=== PATIENT | female | born 1965 | race Caucasian/White ===

== ENCOUNTER 2018-08-06 12:45 | Emergency (ER) | payer MEDICARE, OTHER ==
[~2018-08-06] VITALS: Ht 157.5 cm; Wt 97.5 kg
--- NOTE | 2018-08-06 12:58 | Emergency Room Report ---
History of Present Illness General Chief Complaint: Chest Pain Source: Patient Present Illness HPI Patient presents with complaints of chest pain midsternal reports that she was just released from the hospital at [place] yesterday With similar complaint patient reports having upper endoscopy Reports that she came out of the anesthesia to early and felt that she coughed and possibly aspirated Patient was at her GI physicians office today when she complained of the chest pain and brought to the emergency room Denies any back or flank pain denies any vomiting Patient has significant past medical history with feeding tube in place previous bowel obstruction patient has a Port-A-Cath in the right upper chest Allergies: Coded Allergies: ADHESIVE TAPE (Verified Allergy, Unknown, 08/06/18) ALBUTEROL (Verified Allergy, Unknown, 08/06/18) ASPARTAME (Verified Allergy, Unknown, 08/06/18) BACITRACIN (Verified Allergy, Unknown, 08/06/18) CHLORHEXIDINE (Verified Allergy, Unknown, 08/06/18) DIPHENHYDRAMINE (Verified Allergy, Unknown, 08/06/18) DROPERIDOL (Verified Allergy, Unknown, 08/06/18) ERGOTAMINE (Verified Allergy, Unknown, 08/06/18) HYDROCODONE (Verified Allergy, Unknown, 08/06/18) IPRATROPIUM (Verified Allergy, Unknown, 08/06/18) LATEX (Verified Allergy, Unknown, 08/06/18) LEVALBUTEROL (Verified Allergy, Unknown, 08/06/18) MUPIROCIN (Verified Allergy, Unknown, 08/06/18) NALOXONE (Verified Allergy, Unknown, 08/06/18) NAPHAZOLINE (Verified Allergy, Unknown, 08/06/18) NEOMYCIN (Verified Allergy, Unknown, 08/06/18) PROCHLORPERAZINE (Verified Allergy, Unknown, 08/06/18) SULFAMETHOXAZOLE (Verified Allergy, Unknown, 08/06/18) THIMEROSAL (Verified Allergy, Unknown, 08/06/18) TRAMADOL (Verified Allergy, Unknown, 08/06/18) VITAMIN K2 (Verified Allergy, Unknown, 08/06/18) Patient History Past Medical History: see triage record Pertinent Family History: none Last Menstrual Period: na Reviewed Nursing Documentation: PMH: Agreed; PSxH: Agreed Review of Systems All Other Systems: negative except mentioned in HPI Physical Exam Vital Signs Date Time Temp Pulse Resp B/P (MAP) Pulse Ox O2 Delivery O2 Flow Rate FiO2 08/06/18 12:38 98.2 86 14 117/82 95 Room Air Sp02 EP Interpretation: reviewed, normal General Appearance: no apparent distress Head: normocephalic, atraumatic Eyes: bilateral eye PERRL, bilateral eye EOMI ENT: dry mucus membranes Neck: supple Respiratory: lungs clear, no retraction, no accessory muscle use Cardiovascular #1: regular rate, rhythm Gastrointestinal: other - Feeding tube in place, significant mid abdominal surgical scars Musculoskeletal: swelling - Significant noted in both lower extremities Neurologic: alert, oriented x3, responsive Skin: other - Multiple mid abdominal surgical scars, edema on both lower extremities Lymphatic: no adenopathy Medical Decision Making Diagnostic Impression: Primary Impression: Chest pain ER Course Patient is a fairly complex patient with multiple differential to consideration including but not limited to cardiac cardiopulmonary and vascular emergencies Patient's blood work is obtained imaging studies obtained as well Patient continues to rest well in no acute distress Lung sounds and saturations are appropriate case was discussed with the patient' s primary physician And it was felt the patient stable for close outpatient follow-up Labs Test 08/06/18 13:00 White Blood Count 7.7 K/UL (4.8-10.8) Red Blood Count 3.12 M/UL (4.20-5.40) Hemoglobin 9.7 G/DL (12.0-16.0) Hematocrit 30.4 % (37.0-47.0) Mean Corpuscular Volume 97 FL (80-99) Mean Corpuscular Hemoglobin 30.9 PG (27.0-31.0) Mean Corpuscular Hemoglobin Concent 31.8 G/DL (32.0-36.0) Red Cell Distribution Width 14.7 % (11.6-14.8) Platelet Count 243 K/UL (150-450) Mean Platelet Volume 6.3 FL (6.5-10.1) Neutrophils (%) (Auto) 80.7 % (45.0-75.0) Lymphocytes (%) (Auto) 11.1 % (20.0-45.0) Monocytes (%) (Auto) 6.8 % (1.0-10.0) Eosinophils (%) (Auto) 0.7 % (0.0-3.0) Basophils (%) (Auto) 0.7 % (0.0-2.0) Sodium Level 142 MMOL/L (136-145) Potassium Level 3.7 MMOL/L (3.5-5.1) Chloride Level 103 MMOL/L (98-107) Carbon Dioxide Level 31 MMOL/L (21-32) Anion Gap 8 mmol/L (5-15) Blood Urea Nitrogen 11 mg/dL (7-18) Creatinine 0.8 MG/DL (0.55-1.30) Estimat Glomerular Filtration Rate > 60 mL/min (>60) Glucose Level 113 MG/DL (74-106) Calcium Level 9.7 MG/DL (8.5-10.1) Total Bilirubin 0.3 MG/DL (0.2-1.0) Aspartate Amino Transf (AST/SGOT) 12 U/L (15-37) Alanine Aminotransferase (ALT/SGPT) 21 U/L (12-78) Alkaline Phosphatase 145 U/L (46-116) Total Creatine Kinase 27 U/L (26-308) Creatine Kinase MB < 0.5 NG/ML (0.0-3.6) Creatine Kinase MB Relative Index Troponin I 0.001 ng/mL (0.000-0.056) Pro-B-Type Natriuretic Peptide 178 pg/mL (0-125) Total Protein 6.9 G/DL (6.4-8.2) Albumin 2.7 G/DL (3.4-5.0) Globulin 4.2 g/dL Albumin/Globulin Ratio 0.6 (1.0-2.7) Rhythm Strip Diag. Results EP Interpretation: yes Rate: 80 Rhythm: NSR, no PVC's, no ectopy Chest X-Ray Diagnostic Results Chest X-Ray Diagnostic Results : Chest X-Ray Ordered: Yes # of Views/Limited/Complete: 1 View Indication: Chest Pain EP Interpretation: Yes Interpretation: no consolidation, no effusion, no pneumothorax Impression: No acute disease Electronically Signed by: Olimpia Marin DO Last Vital Signs Date Time Temp Pulse Resp B/P (MAP) Pulse Ox O2 Delivery O2 Flow Rate FiO2 08/06/18 12:38 98.2 86 14 117/82 95 Room Air Status: improved Disposition: HOME, SELF-CARE Condition: Improved Additional Instructions: Patient is provided with the discharge instructions notified to follow up with primary doctor in the next 2-3 days otherwise return to the er with any worsening symptoms. Please note that this report is being documented using DRAGON technology. This can lead to erroneous entry secondary to incorrect interpretation by the dictating instrument. Olimpia Marin DO Aug 06, 2018 12:58
[2018-08-06 13:06] VITALS: BP 135/68
[2018-08-06 13:21] LABS: BASOPHILS % (AUTO) 0.7 % (0.0-2.0); EOSINOPHILS % (AUTO) 0.7 % (0.0-3.0); HEMATOCRIT 30.4 % (37.0-47.0); HEMOGLOBIN 9.7 G/DL (12.0-16.0); LYMPHOCYTES % (AUTO) 11.1 % (20.0-45.0); MEAN CORPUSCULAR VOLUME 97 FL (80-99); MONOCYTES % (AUTO) 6.8 % (1.0-10.0); NEUTROPHILS % (AUTO) 80.7 % (45.0-75.0); PLATELET COUNT 243 K/UL (150-450); RED BLOOD COUNT 3.12 M/UL (4.20-5.40); RED CELL DISTRIBUTION WIDTH 14.7 % (11.6-14.8); WHITE BLOOD COUNT 7.7 K/UL (4.8-10.8)
[2018-08-06 13:27] LABS: ANION GAP 8 mmol/L (5-15); BLOOD UREA NITROGEN 11 mg/dL (7-18); CALCIUM 9.7 MG/DL (8.5-10.1); CARBON DIOXIDE 31 MMOL/L (21-32); CHLORIDE 103 MMOL/L (98-107); CREATININE 0.8 MG/DL (0.55-1.30); POTASSIUM 3.7 MMOL/L (3.5-5.1); SODIUM 142 MMOL/L (136-145)
[2018-08-06 13:40] LABS: ALANINE AMINOTRANSFERASE 21 U/L (12-78); ALBUMIN 2.7 G/DL (3.4-5.0); ALBUMIN/GLOBULIN RATIO 0.6 (1.0-2.7); ALKALINE PHOSPHATASE 145 U/L (46-116); ASPARTATE AMINO TRANSFERASE 12 U/L (15-37); BILIRUBIN,TOTAL 0.3 MG/DL (0.2-1.0); CKMB < 0.5 NG/ML (0.0-3.6); CREATINE KINASE 27 U/L (26-308)
--- NOTE | 2018-08-06 15:05 | Diagnostic Imaging Report ---
Indication: Shortness of breath, chest pain Technique: One view of the chest Comparison: none Findings: The heart is upper limits normal in size. There is a right chest port catheter. The lungs and pleural spaces are clear. Impression: No acute process
[2018-08-06 15:24] VITALS: BP 125/63
--- NOTE | 2018-08-07 15:21 | Cardiology Report ---
APPROVED REPORT EKG Measurement Heart [id number] Normal sinus rhythm Normal ECG
== END 2018-08-06 15:25 | disposition home or self-care (01) ==
LOC: EDBD 12:45 → EMR 13:19
DX: R07.89 Other chest pain (principal); Z88.2 Allergy status to sulfonamides; Z88.8 Allergy status to other drugs, medicaments and biological substances; Z88.1 Allergy status to other antibiotic agents; Z91.040 Latex allergy status
CPT/HCPCS: 36415; 71045; 80053; 82550; 82553; 83880; 84484; 85025; 93005; 99283

== ENCOUNTER 2020-03-13 21:36 | Inpatient (IN) | payer MEDICARE, OTHER ==
[~2020-03-13] VITALS: Ht 177.8 cm; Wt 100.7 kg
[2020-03-13 21:36] VITALS: BP 124/87
--- NOTE | 2020-03-13 21:36 | NUR ---
ED Nurse Note: Pt JESUS [id number] from [facility] c/o seizure, witnessed by nursing staff, unk duration. Per EMS, no incontinence, no head trauma. Pt AAOx3, able to follow simple commands. No SOB, on room air. Unk last seizure episode. Seizure precaution observed. Pt placed on cardiac cath technologist. ERMD at bedside.
[2020-03-13] MEDS ORDERED: levETIRAcetam 1,000mg/NS100ml 100 ML IVPB ONE (21:45)
[2020-03-13] MEDS ORDERED: LORazepam Inj 2mg/ml 1ml IV ONE ×2 (21:45→23:00)
--- NOTE | 2020-03-13 21:45 | NUR ---
ED Nurse Note: Pt is actively seizing lasted for 30 sec. Ativan 2mg IM given, as ordered. Pt has no IV access yet.
[2020-03-13] MEDS ORDERED: LORazepam Inj 2mg/ml 1ml ONE (22:35)
--- NOTE | 2020-03-13 22:35 | NUR ---
ED Nurse Note: IV line established. Blood collected and sent to lab.
--- NOTE | 2020-03-13 22:55 | NUR ---
ED Nurse Note: Pt taken to CT via bibi, accompanied by a tech.
--- NOTE | 2020-03-13 23:05 | NUR ---
ED Nurse Note: Pt returned from CT, not in any distress.
[2020-03-13 23:10] LABS: BASOPHILS % (AUTO) 1.5 % (0.0-2.0); EOSINOPHILS % (AUTO) 2.6 % (0.0-3.0); HEMATOCRIT 36.7 % (37.0-47.0); HEMOGLOBIN 11.7 G/DL (12.0-16.0); LYMPHOCYTES % (AUTO) 26.5 % (20.0-45.0); MEAN CORPUSCULAR VOLUME 104 FL (80-99); MONOCYTES % (AUTO) 14.1 % (1.0-10.0); NEUTROPHILS % (AUTO) 55.4 % (45.0-75.0); PLATELET COUNT 260 K/UL (150-450); RED BLOOD COUNT 3.52 M/UL (4.20-5.40); RED CELL DISTRIBUTION WIDTH 15.1 % (11.6-14.8); WHITE BLOOD COUNT 5.6 K/UL (4.8-10.8)
[2020-03-13 23:18] LABS: ALANINE AMINOTRANSFERASE 15 U/L (12-78); ALBUMIN 2.8 G/DL (3.4-5.0); ALBUMIN/GLOBULIN RATIO 0.9 (1.0-2.7); ALKALINE PHOSPHATASE 178 U/L (46-116); ASPARTATE AMINO TRANSFERASE 20 U/L (15-37); BILIRUBIN,TOTAL 0.2 MG/DL (0.2-1.0); BLOOD UREA NITROGEN 13 mg/dL (7-18); CALCIUM 8.7 MG/DL (8.5-10.1); CHLORIDE 104 MMOL/L (98-107); CREATINE KINASE 27 U/L (26-308); CREATININE 0.8 MG/DL (0.55-1.30); POTASSIUM 3.2 MMOL/L (3.5-5.1); SODIUM 139 MMOL/L (136-145)
[2020-03-13 23:23] VITALS: BP 137/63
--- NOTE | 2020-03-13 23:30 | NUR ---
HAND-OFF: Report given to Jocelyn PENN.
[2020-03-13 23:31] LABS: CARBON DIOXIDE 27 MMOL/L (21-32)
--- NOTE | 2020-03-13 23:31 | NUR ---
ED Nurse Note: Pt resting in bed, VSS no ss of distress noted. will continue to monitor.
--- NOTE | 2020-03-13 23:59 | Emergency Room Report ---
History of Present Illness General Chief Complaint: Seizure Present Illness HPI 54-year-old female with a complex past medical history and history of seizure disorder but not currently on any antiepileptics here with witnessed 1 minute tonic-clonic seizure-like activity at the care home. This lasted for approximately 60 seconds according to the care home report and self resolved without any medication. Patient appeared postictal on arrival to the emergency department. She was moaning and was not able to provide any clear history. Patient had another seizure on arrival to the emergency department requiring 2 mg of Ativan IV with resolution of her seizure. She however had another seizure and required another 2 mg of Ativan IV again with resolution. Unable to participate in review of systems secondary to postictal state Allergies: Coded Allergies: ADHESIVE TAPE (Verified Allergy, Unknown, 08/06/18) ALBUTEROL (Verified Allergy, Unknown, 08/06/18) ASPARTAME (Verified Allergy, Unknown, 08/06/18) BACITRACIN (Verified Allergy, Unknown, 08/06/18) CHLORHEXIDINE (Verified Allergy, Unknown, 08/06/18) DIPHENHYDRAMINE (Verified Allergy, Unknown, 08/06/18) DROPERIDOL (Verified Allergy, Unknown, 08/06/18) ERGOTAMINE (Verified Allergy, Unknown, 08/06/18) HYDROCODONE (Verified Allergy, Unknown, 08/06/18) IPRATROPIUM (Verified Allergy, Unknown, 08/06/18) LATEX (Verified Allergy, Unknown, 08/06/18) LEVALBUTEROL (Verified Allergy, Unknown, 08/06/18) MUPIROCIN (Verified Allergy, Unknown, 08/06/18) NALOXONE (Verified Allergy, Unknown, 08/06/18) NAPHAZOLINE (Verified Allergy, Unknown, 08/06/18) NEOMYCIN (Verified Allergy, Unknown, 08/06/18) PROCHLORPERAZINE (Verified Allergy, Unknown, 08/06/18) SULFAMETHOXAZOLE (Verified Allergy, Unknown, 08/06/18) THIMEROSAL (Verified Allergy, Unknown, 08/06/18) TRAMADOL (Verified Allergy, Unknown, 08/06/18) VITAMIN K2 (Verified Allergy, Unknown, 08/06/18) COVID-19 Screening Contact w/high risk pt: No Experienced COVID-19 symptoms?: No COVID-19 Testing performed RESOURCE CONSERVATIONIST: No Nursing Documentation-PMH Hx Hypertension: Yes Review of Systems All Other Systems: limited - Altered, somnolent Physical Exam Vital Signs Date Time Temp Pulse Resp B/P (MAP) Pulse Ox O2 Delivery O2 Flow Rate FiO2 03/13/20 21:33 98.4 72 18 124/87 (99) 98 Room Air Sp02 EP Interpretation: reviewed, normal General Appearance: no apparent distress, non-toxic, other - Morbidly obese Head: normocephalic, atraumatic Eyes: bilateral eye normal inspection, bilateral eye PERRL ENT: normal pharynx, no angioedema, other - Incoherently moaning, airway intact Neck: full range of motion, supple/symm/no masses Respiratory: chest non-tender, lungs clear, normal breath sounds, speaking full sentences Cardiovascular #1: regular rate, rhythm, no edema Cardiovascular #2: 2+ carotid (R), 2+ carotid (L), 2+ radial (R), 2+ radial (L), 2+ dorsalis pedis (R), 2+ dorsalis pedis (L) Gastrointestinal: normal bowel sounds, non tender, soft, non-distended, no guarding, no rebound Rectal: deferred Genitourinary: normal inspection, no CVA tenderness Musculoskeletal: back normal, normal range of motion, gait/station normal, non- tender Neurologic: motor strength/tone normal, responsive, other - Confused, moaning incoherently. Unable to follow commands secondary to somnolence and postictal state. Moving all extremities non-purposefully. Nonfocal neurologic examination Psychiatric: other - Confused, somnolent Lymphatic: no adenopathy Medical Decision Making Diagnostic Impression: Primary Impression: Epileptic seizure, generalized Additional Impressions: AMS (altered mental status) Hypokalemia ER Course Laboratory Tests Test 03/13/20 22:35 White Blood Count 5.6 K/UL (4.8-10.8) Red Blood Count 3.52 M/UL (4.20-5.40) L Hemoglobin 11.7 G/DL (12.0-16.0) L Hematocrit 36.7 % (37.0-47.0) L Mean Corpuscular Volume 104 FL (80-99) H Mean Corpuscular Hemoglobin 33.3 PG (27.0-31.0) H Mean Corpuscular Hemoglobin Concent 32.0 G/DL (32.0-36.0) Red Cell Distribution Width 15.1 % (11.6-14.8) H Platelet Count 260 K/UL (150-450) Mean Platelet Volume 6.8 FL (6.5-10.1) Neutrophils (%) (Auto) 55.4 % (45.0-75.0) Lymphocytes (%) (Auto) 26.5 % (20.0-45.0) Monocytes (%) (Auto) 14.1 % (1.0-10.0) H Eosinophils (%) (Auto) 2.6 % (0.0-3.0) Basophils (%) (Auto) 1.5 % (0.0-2.0) Sodium Level 139 MMOL/L (136-145) Potassium Level 3.2 MMOL/L (3.5-5.1) L Chloride Level 104 MMOL/L (98-107) Carbon Dioxide Level 27 MMOL/L (21-32) Blood Urea Nitrogen 13 mg/dL (7-18) Creatinine 0.8 MG/DL (0.55-1.30) Estimated Glomerular Filtration Rate > 60 mL/min (>60) Glucose Level 130 MG/DL (74-106) H Calcium Level 8.7 MG/DL (8.5-10.1) Total Bilirubin 0.2 MG/DL (0.2-1.0) Aspartate Amino Transferase (AST) 20 U/L (15-37) Alanine Aminotransferase (ALT) 15 U/L (12-78) Alkaline Phosphatase 178 U/L (46-116) H Total Creatine Kinase 27 U/L (26-308) Troponin I 0.000 ng/mL (0.000-0.056) Total Protein 5.8 G/DL (6.4-8.2) L Albumin 2.8 G/DL (3.4-5.0) L Globulin 3.0 g/dL Albumin/Globulin Ratio 0.9 (1.0-2.7) L EKG: NSR, no ischemia, intervals WNL. No ectopy. T wave inversions in leads V1 and V2 Rhythm strip: patient monitored for arrhythmias - no malignant dysrhythmias, runs of PVCs, nor pauses noted Total critical care time: Approximately 45 minutes Due to a high probability of clinically significant, life threatening deterioration, the patient required the highest level of preparedness to intervene emergently and I personally spent this critical care time directly and personally managing the patient. This critical care time included obtaining a history, examining the patient, pulse oximetry, ordering and reviewing studies, ordering treatments, evaluating response to treatment and updating management plan as needed, frequent reassessment and discussion with other providers as well as arranging for ultimate disposition. This critical to care time was performed to assess and manage the high probability of life-threatening deterioration that could result in multiorgan failure. This critical care time is separate from the separately billable procedures and treating other patients. Procedure: Ultrasound-guided IV. 20-gauge IV placed in left upper arm using ultrasound guidance. No complications 54-year-old female here with seizure. Review of patient's records show that she does have a seizure disorder in her past medical history however there are no antiepileptic medications listed on her list of medications from the care home. Patient required a total of 4 mg of Ativan IV to stop her tonic-clonic seizure-like activity in the emergency department. She was also given 1 g of Keppra IV. CBC, CMP largely unremarkable. Troponin negative. EKG normal. CT head negative. Chest x-ray normal as well. Patient admitted to telemetry in stable condition. Last Vital Signs Date Time Temp Pulse Resp B/P (MAP) Pulse Ox O2 Delivery O2 Flow Rate FiO2 03/13/20 23:23 90 18 115/57 99 03/13/20 23:23 98.4 Room Air Referrals: Sharon Trejo MD (PCP) Sridhar Feliz M.D. Mar 13, 2020 23:59
[2020-03-14] VITALS (19 sets, daily range): BP systolic 90–126; BP diastolic 41–78
--- NOTE | 2020-03-14 00:10 | NUR ---
ED Nurse Note: VRE/ CRE MRSA swabs obtained and sent to lab. Pt skin intact. Per ERMD, blood catheter placed and UA sent to lab. Pt tolerated well. Will continue to monitor.
[2020-03-14] MEDS ORDERED: BUMETANIDE2 MG ORAL (00:22)
[2020-03-14] MEDS ORDERED: K-TAB10 MEQ PO (00:22)
[2020-03-14] MEDS ORDERED: ASPIRIN81 MG ORAL (00:24)
[2020-03-14] MEDS ORDERED: VITAMIN B122500 MCG PO (00:24)
[2020-03-14] MEDS ORDERED: MELATONIN3 MG ORAL (00:24)
[2020-03-14] MEDS ORDERED: VITAMIN D325 MC1 PO (00:26)
[2020-03-14] MEDS ORDERED: SPIRIVA18 MCG INH (00:32)
[2020-03-14] MEDS ORDERED: ABILIFY30 MG ORAL (00:32)
[2020-03-14] MEDS ORDERED: MAGNESIUM400 M1 PO (00:33)
[2020-03-14] MEDS ORDERED: CELLCEPT500 MG ORAL (00:33)
--- NOTE | 2020-03-14 00:35 | NUR ---
ED Nurse Note: Pt refused IV potassium. ERMD notified. Awaiting further orders.
[2020-03-14] MEDS ORDERED: SENNA8.6 M2 PO (00:37)
[2020-03-14] MEDS ORDERED: ELIQUIS5 MG ORAL ×2 (00:37→00:39)
[2020-03-14] MEDS ORDERED: MIRALAX17 G2 ORAL (00:38)
[2020-03-14] MEDS ORDERED: DOXYCYCLINE MO100 MG ORAL (00:42)
[2020-03-14] MEDS ORDERED: DOCUSATE SODIU250 MG ORAL (00:42)
[2020-03-14] MEDS ORDERED: METOLAZONE5 MG PO (00:43)
[2020-03-14] MEDS ORDERED: SIMETHICONE80 MG ORAL (00:44)
[2020-03-14] MEDS ORDERED: vraylar PO (00:46)
[2020-03-14] MEDS ORDERED: ISOPTO TEARS15 ML OP (00:47)
[2020-03-14] MEDS ORDERED: LIPITOR10 MG ORAL (00:47)
[2020-03-14] MEDS ORDERED: GABAPENTIN600 MG ORAL (00:48)
[2020-03-14] MEDS ORDERED: PANTOPRAZOLE SO40 MG ORAL (00:49)
[2020-03-14] MEDS ORDERED: LIDODERM700 M1 TOPIC (00:49)
[2020-03-14] MEDS ORDERED: ACETAMINOPHEN500 M3 ORAL (00:50)
--- NOTE | 2020-03-14 01:05 | NUR ---
ED Nurse Note: all medications administered, pt tolerated well no ss of distress noted. will continue to monitor.
[2020-03-14 01:14] LABS: APPEARANCE,URINE CLEAR; BILIRUBIN, URINE NEGATIVE (NEGATIVE); COLOR,URINE PALE YELLOW; GLUCOSE, URINE (UA) NEGATIVE (NEGATIVE); KETONES,URINE NEGATIVE (NEGATIVE); LEUKOCYTE ESTERASE ,URINE NEGATIVE (NEGATIVE); NITRITE,URINE NEGATIVE (NEGATIVE); PH,URINE 7 (4.5-8.0); PROTEIN,URINE NEGATIVE (NEGATIVE); UROBILINOGEN,URINE NORMAL MG/DL (0.0-1.0)
--- NOTE | 2020-03-14 01:36 | NUR ---
ED Nurse Note: Report given to FILI Hernández on telemetry unit.
--- NOTE | 2020-03-14 02:00 | NUR ---
ER DISCHARGE NOTE: Patient is cleared to be discharged to telemetry unit per ERMD, pt is aox3, 95% on room air, with stable vital signs. pt was able to verbalize understanding. pt is able to ambulate with steady gait. pt is bedbound with full assist. Report given to FILI Hernández on telemetry unit. Pt transferred to unit no director of cardiac rehabilitation in stable condition with 1 RN and 1 MARSH BUGGY OPERATOR. pt took all belongings.
--- NOTE | 2020-03-14 02:08 | NUR ---
NURSE NOTES: Received pt from ED via aderney. Pt transferred to 201-1 without and incident. Pt is A/Ox4; impulsive and uncooperative. Pt is shouting at nurses and demanding to be discharge. Metter pt to room and unit. Received report from FILI Banks. cafeteria monitor is in placed; pt is NSR. IV site intact, asymptomatic, and patent. Belongings list checked and signed. Bed is in the lowest position and locked. Call light and bedside table is within reach. No signs/symptoms of acute distress noted. Will contact MD for admission orders.
--- NOTE | 2020-03-14 02:52 | NUR ---
NURSE NOTES: Contacted Dr. Trejo's group for admission orders. Awaiting call back.
--- NOTE | 2020-03-14 03:15 | NUR ---
NURSE NOTES: Pt screaming, "I want to get discharged!" Screaming and name calling to every RNs. Pt pulled out both IVs that was inserted in ER and wants her Cristofer Cath to be access instead."
--- NOTE | 2020-03-14 03:30 | NUR ---
NURSE NOTES: Received admission orders from Dr. Gillette. Will note and carry out.
[2020-03-14] MEDS ORDERED: Gadavist 7.5mMol/7.5ml vial IV PRN (03:45)
[2020-03-14] MEDS ORDERED: Miralax 17gm pkt ORAL PRN ×2 (04:15→21:45)
[2020-03-14] MEDS ORDERED: Acetaminophen 500mg (ES) tab ORAL SCH (04:15)
[2020-03-14] MEDS ORDERED: Simethicone 80mg tab ORAL PRN ×2 (04:15→21:45)
[2020-03-14] MEDS ORDERED: Acetaminophen 500mg (ES) tab ORAL PRN (04:45)
[2020-03-14] MEDS ORDERED: HYDROmorphone 2mg tab ORAL PRN (05:30)
--- NOTE | 2020-03-14 05:40 | NUR ---
NURSE NOTES: Per [employer] Pharmacist, safe to give Tylenol PO and Dilaudid PO at the same time.
--- NOTE | 2020-03-14 07:34 | NUR ---
NURSE HAND-OFF REPORT: Important Events on Shift: Pt was admitted for seizures. Pt was uncooperative and impulsive. No seizure activity with admitting RN. Patient Status: Stable Diet: Cardiac Pending Orders: MRI Brain Pending Results/Labs: AM Labs Pending MD notification: N Latest Vital Signs: Temperature 97.3 , Pulse 89 , B/P 126 /65 , Respiratory Rate 20 , O2 SAT 97 , Room Air, O2 Flow Rate . EKG Rhythm: Sinus Rhythm Rhythm change?: N Latest Parks Fall Score: 50 Fall Risk: High Risk Safety Measures: Call light Within Reach, Bed Alarm Zone 2, Side Rails Side Rails x3, Bed position Low and Locked. Fall Precautions: Yellow Socks Yellow Gown Door Sign Patient Fall Education Report given to FILI Hilton.
--- NOTE | 2020-03-14 07:58 | NUR ---
NURSE NOTES: Received report from FILI eHrnández. Pt is A/O x4 but rude and uncooperative. No SOB or acute distress noted. Pt is shouting at nurses to have the kayli cath accessed because she refuses an IV. Informed pt that waiting for the order and will access when obtained. bus monitor is in placed and show SR. Bed is in the lowest position and locked. Side rails padded for seizure precautions. Call light is within reach.
[2020-03-14] MEDS ORDERED: Vitamin D 1000 IU Tab ORAL SCH (09:00)
[2020-03-14] MEDS ORDERED: Eliquis 5mg tablet ORAL SCH (09:00)
[2020-03-14] MEDS ORDERED: Aspirin Baby 81mg ORAL SCH (09:00)
[2020-03-14] MEDS ORDERED: Docusate 250mg cap ORAL SCH (09:00)
[2020-03-14] MEDS ORDERED: Bumetanide 1mg tab ORAL SCH (09:00)
[2020-03-14] MEDS ORDERED: HYDROcodone/Acetamin 7.5/325 tab ORAL PRN ×2 (09:15→21:45)
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
[2020-03-14] MEDS ORDERED: Albuterol/Ipratropium 3ml neb HHN PRN ×2 (10:15→21:45)
[2020-03-14] MEDS: Bumetanide 1mg tab ORAL SCH ×2 (10:28→18:00)
[2020-03-14] MEDS: Doxycycline Monohydrate 100mg ORAL SCH ×2 (10:29→18:00)
[2020-03-14] MEDS: Sennosides 8.6mg tab ORAL SCH ×2 (10:30→17:48)
[2020-03-14] MEDS: LORazepam Inj 2mg/ml 1ml IV PRN ×4 (11:06→13:12)
--- NOTE | 2020-03-14 11:12 | NUR ---
NURSES NOTES: Came to pt room and pt stated she feels she is going to have a seizure. Ativan pulled from pyxs and when arrived back to the room. Pt was already having a seizure. Additional Ativan was pulled and given. TRAPPER ANIMAL called because seizures continued and uncontrolled.
--- NOTE | 2020-03-14 11:17 | NUR ---
NURSE NOTES: pt having continues seizure, 2 doses of ativan administered, PAINTER MIRROR was called and arrived, spoke to dr jung and was notified, ordered transfer to ICU.
--- NOTE | 2020-03-14 11:33 | NUR ---
NURSE NOTES: CATEGORY CONSULTANT NOTES PAGED DR CARRION AGAIN PT STILL HAVING SEIZURE, DR SANCHEZ WAS PAGED.
[2020-03-14] MEDS ORDERED: Midazolam for drip 50 MG in NS 90 ML IV PRN (11:45)
--- NOTE | 2020-03-14 11:49 | General Progress Note ---
Advance Care Planning Advance Care Planning Advance Care Planning [facility] An independent Hospitalist group, where every patient is our [facility] Internal Medicine Hospitalist Advanced Care Planning Note Please contact us at Date of Discussion: A [id number] discussion with the patient regarding the patient's advanced care planning took place during this hospitalization on the above date. The discussion included the explanation and discussion of advance directives and associated forms/documents, as well as the patient's current code status. We also discussed at length the patient's medical conditions (both acute and chroni c), general prognosis, treatment options, and goals of care. The following summarizes the discussion: Advance Care Planning/Goals of Care: - Will attempt to fill out an AD and/or POLST with the patient prior to discharge, if not already completed - Continue current evaluation and management of any acute and chronic medical issues - Will continue to support the patient/family - Will continue to discuss both short- and long-term goals of care DPOA-HC/Surrogate Decision Maker: None currently appointed Code Status: Full Code Advanced Care Planning Forms/Documents Completed: Deferred until later encounter/visit A total of 15 minutes was spent on this discussion, including counseling, answering questions, and completing, if any, pertinent advanced care planning forms/documents. Time of note may not reflect time of encounter. Sander Osuna D.O Mar 14, 2020 11:49
--- NOTE | 2020-03-14 11:55 | NUR ---
NURSES NOTES: Record of Seizure Activity. After INVOICE MACHINE OPERATOR was called and 2 doses of Ativan given with seizures continuing. Vitals are noted in interventions. 11:23 1 min 11:26 50 sec 11:27 20 sec 11:28 1 min 11:28 20 sec 11:29 50 sec 11:33 1 min 20 sec 11:36 45 sec 11:38 40 sec 11:41 1 min 11:46 30 sec 11:47 30 sec 11:49 15 sec 11:51 30 sec 11:54 30 sec 11:55 45 sec
--- NOTE | 2020-03-14 12:00 | NUR ---
NURSE NOTES: Pt received from [facility]. Pt transferred from [facility] d/t intractable sz activity despite multiple Ativan administrations. Pt noted with intermittent sz activity at this time (gentle shaking-like movements noted to extremities) - pupils are equal and round, 4 mm bilaterally with sluggish rxn to light. Pt withdraws to deep pain. No verbal response at this time noted. afebrile. Pt is in SR to cardiac cath lab technologist. No respiratory distress noted. Respirations noted 14/min with spO2 99% on simple mask 15 L O2. Breath sounds slightly diminished upon auscultation. Generalized non-pitting edema noted to extremities. Abd and soft with active bowel sounds to all quadrant. F/C noted draining clear, yellow urine. Skin is intact. Pt has a right upper chest port-a-cath (inserted prioir to admission) with dry and intact dressing - currently saline locked. Preparing to administer keppra IV. Bed in lowest position, alarm on, side rails up x 2 and padded per seizure precaution, call light within reach. Will continue to monitor. Belongings reviewed with FILI Hilton.
[2020-03-14 12:01] LABS: EOSINOPHILS % (AUTO) 1.5 % (0.0-3.0); HEMOGLOBIN 11.2 G/DL (12.0-16.0); LYMPHOCYTES % (AUTO) 24.9 % (20.0-45.0); MEAN CORPUSCULAR VOLUME 98 FL (80-99); MONOCYTES % (AUTO) 11.4 % (1.0-10.0); NEUTROPHILS % (AUTO) 60.3 % (45.0-75.0); PLATELET COUNT 273 K/UL (150-450); RED BLOOD COUNT 3.46 M/UL (4.20-5.40); RED CELL DISTRIBUTION WIDTH 14.2 % (11.6-14.8); WHITE BLOOD COUNT 5.7 K/UL (4.8-10.8)
[2020-03-14 12:20] LABS: ANION GAP 11 mmol/L (5-15); BLOOD UREA NITROGEN 17 mg/dL (7-18); CALCIUM 8.9 MG/DL (8.5-10.1); CARBON DIOXIDE 24 MMOL/L (21-32); CHLORIDE 104 MMOL/L (98-107); CREATININE 0.7 MG/DL (0.55-1.30); POTASSIUM 4.6 MMOL/L (3.5-5.1); SODIUM 139 MMOL/L (136-145)
[2020-03-14 12:25] LABS: ALANINE AMINOTRANSFERASE 22 U/L (12-78); ALBUMIN/GLOBULIN RATIO 0.8 (1.0-2.7); ALKALINE PHOSPHATASE 178 U/L (46-116); ASPARTATE AMINO TRANSFERASE 29 U/L (15-37); BILIRUBIN,TOTAL 0.3 MG/DL (0.2-1.0)
[2020-03-14 12:34] LABS: PHOSPHORUS 3.2 MG/DL (2.5-4.9)
--- NOTE | 2020-03-14 12:52 | NUR ---
NURSE NOTES: Jose OH just brought up from pharmacy - hung at this time. Intermittent SZ activity persists- Each episode lasting approx 5 min. Pt is arousable in between episodes - responds to name. No cardiopulmonary distress noted.
[2020-03-14] MEDS ORDERED: levETIRAcetam 1,000mg/NS100ml 100 ML IVPB ONE (13:00)
--- NOTE | 2020-03-14 13:00 | NUR ---
NURSE NOTES: Dr Rose at bedside assessing pt. Order received to place pt NPO at this time. Gabapentin held - Dr Rose aware (unable to administer PO meds at this time d/t neuro status - pt is drowsy/ not fully alert).
--- NOTE | 2020-03-14 13:30 | NUR ---
NURSE NOTES: Spoke with Dr Osuna over phone - let him know pt is having intermittent SZ activity despite keppra IV administration. States he will place order for dilantin IV.
--- NOTE | 2020-03-14 13:56 | NUR ---
NURSE NOTES: Dilantin IV just brought up from pharmacy and hung at this time.
[2020-03-14] MEDS ORDERED: PHENYTOIN IVPB SCH (14:30)
[2020-03-14] MEDS ORDERED: NS IVPB SCH (14:30)
--- NOTE | 2020-03-14 14:45 | Consultation ---
DATE OF CONSULTATION: 03/14/2020 PULMONARY/ICU CONSULTATION HISTORY OF PRESENT ILLNESS: This is a 54-year-old female with history of seizure disorder, states she has hemiplegic migraine. She was admitted to the hospital following seizures. She was sent from senior living. Past history is notable for Bren-Danlos syndrome, chronic atrial fibrillation, CHF, bipolar disorder, seizure disorder, antiphospholipid syndrome, lupus, gastroparesis, previous pulmonary embolism and DVT. She also has osteoarthritis and asthma. The patient received benzodiazepine and loaded with Keppra. At this time, she is obtunded, seen in the ICU. HOME MEDICATIONS: Reviewed and reconciled in chart. ALLERGIES: Multiple listed in chart. PAST SURGICAL HISTORY: IVC filter in place. PAST MEDICAL HISTORY: As discussed above. SOCIAL HISTORY: No history of alcohol or tobacco usage. She is a senior living resident. PHYSICAL EXAMINATION: GENERAL: Reveals a 54-year-old female. At this time, she is obtunded but responds to deep stimulation. CHEST: Clear breath sounds bilaterally. ABDOMEN: Soft. EXTREMITIES: There is no edema. LABORATORY DATA: Lab testing shows a hemoglobin 11.2, otherwise normal CBC and BMP. Glucose 116. Coags are pending. Toxicology is negative. Urinalysis negative. IMPRESSION: 1. Status epilepticus status post Keppra dosing. 2. Multiple medical problems consisting of Bren-Danlos syndrome, antiphospholipid syndrome, chronic atrial fibrillation, lupus, gastroparesis, previous PE and atrial fibrillation. DISCUSSION: Admit to the hospital. We will initiate Keppra. We will use Versed drip as well as p.r.n. Versed. Currently saturating well on room air. We will follow carefully in ICU. Home medications when the patient is able to take by mouth. We will follow carefully. Ajay Rose M.D. DR: [place] JOB#: [id number] CC:
--- NOTE | 2020-03-14 15:45 | NUR ---
NURSE NOTES: No more SZ activity present since dilantin administration.
--- NOTE | 2020-03-14 15:46 | NUR ---
NURSE NOTES: Toby poultry picker assessing pt at bedside.
--- NOTE | 2020-03-14 16:00 | NUR ---
NURSE NOTES: Pt repositioned. Afebrile. operator technician remains at bedside. No SZ activity noted at this time.
[2020-03-14] MEDS ORDERED: Eliquis 2.5mg tablet ORAL SCH (18:00)
[2020-03-14] MEDS ORDERED: Docusate 100mg cap ORAL SCH (18:00)
--- NOTE | 2020-03-14 18:00 | NUR ---
NURSE NOTES: Spoke with Dr Osuna over phone - let him know all 1800 PO meds held - pt is drwosy - unsafe to swallow at this time. ST eval order placed.
--- NOTE | 2020-03-14 19:36 | NUR ---
NURSE HAND-OFF REPORT: Latest Vital Signs: Temperature 98.2 , Pulse 84 , B/P 95 /55 , Respiratory Rate 22 , O2 SAT 100 , Simple Mask, O2 Flow Rate 15.0 . Vital Sign Comment: stable EKG Rhythm: Sinus Rhythm Rhythm change?: N MD Notified?: n/a MD Response: n/a Latest Parks Fall Score: 50 Fall Risk: High Risk Safety Measures: Call light Within Reach, Bed Alarm Zone 2, Side Rails Side Rails x2, Bed position Low and Locked. Fall Precautions: Yellow Socks Yellow Gown Patient Fall Education Report given to FILI Medina.
--- NOTE | 2020-03-14 19:42 | NUR ---
NURSE NOTES: Received report from FILI Downs. Pt is resting on the bed and drowsy, agitated, confused and combative. On hall monitor with SR. SaO2 100% with O2 15L via simple mask. Pt trying to pulled out Gonzales and kicking and pinching staff. Trying to get out of bed with rolling without assistance. Get order and applied bilateral soft restraint. checked comfort and circulation. Placed fall and seizure precaution. Provide safe environment. Received order with transfer to [facility] with sitter. Pt has Rt. upper chest Port a cath and dressing is clean and dry. Pt has Gonzales cath and patent and drainage well. Will continue to care plan.
[2020-03-14] MEDS ORDERED: levETIRAcetam 1,000mg/NS100ml 100 ML IVPB SCH (21:00)
[2020-03-14] MEDS ORDERED: LORazepam Inj 2mg/ml 1ml IV PRN (21:45)
--- NOTE | 2020-03-14 22:00 | NUR ---
TRANSFER TO FLOOR: Patient transferred to [facility] room 235-2. Report given to FILI Rodriguez. Belongings and medications given to FILI Dill. Pt is awake. No sign of acute distress noted. No seizure activity at this time. Applied Tele monitor. Placed fall and seizure precaution.
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
--- NOTE | 2020-03-14 22:00 | NUR ---
NURSE NOTES: Report received from FILI Medina. Pt transferred by bibi from ICU direct to room 235-2. Pt A/O x2. Unable to determine purpose and place. Observed on Simple Mask 15L saturating at 96% O2 sat. Pt on NPO except for ice chips/meds pending ST eval and hx of seizures. Requested seizure pads for bed rails. Pt c/o pain on left leg 10/10 and continuously requests for Dilaudid and snacks. DOMINICK portcath stable and intact TKO. Gonzales draining well to gravity. Noted with alterations in skin integrity. Pictures uploaded. Bed alarm on. Bed placed in lowest and locked position. Taught pt to utilize call light when needing assistance. Call light within reach. Will continue monitoring.
--- NOTE | 2020-03-14 23:10 | NUR ---
NURSE NOTES: Pt exhibiting disruptive and manipulative behaviors. Attempting to remove venturi mask, cry, and constantly question plan of care. Will reorient. Pt in stable condition.
--- NOTE | 2020-03-14 23:30 | NUR ---
NURSE NOTES: Pt attempting to get out of bed. Pt observed sliding down at edge of bed. When asking what she needs, pt responds with, "I need a snack and pain meds." Pain meds given. Call light within reach and bed in zone 2. Will monitor.
--- NOTE | 2020-03-14 23:34 | NUR ---
NURSE NOTES: Pt observed shaking and attempts to shake her extremities numerous times in bed. Pt then attempts to ask for pain medications. Vitals are WNL.
[2020-03-15] VITALS: BP 106/52
--- NOTE | 2020-03-15 00:10 | NUR ---
NURSE NOTES: PRN ativan given for attempting to get out of bed and pulling on medical devices numerous times. Charge nurse at bedside to re-assess pt and no signs of seizure activity observed. Pt shaking extremities unilaterally. Will monitor.
[2020-03-15] MEDS: LORazepam Inj 2mg/ml 1ml IV PRN ×2 (01:34→14:03)
--- NOTE | 2020-03-15 03:00 | NUR ---
NURSE NOTES: Pt asleep after ativan administration at 0100. No signs of distress noted.
[2020-03-15 04:00] VITALS: BP 94/56
[2020-03-15] MEDS ORDERED: Varibar Honey 250ml MC PRN (04:00)
[2020-03-15] MEDS ORDERED: Varibar Thin Liquid powder 148gm MC PRN (04:00)
[2020-03-15] MEDS ORDERED: Varibar Nectar 240ml MC PRN (04:00)
[2020-03-15] MEDS ORDERED: Varibar Pudding 230ml MC PRN (04:00)
--- NOTE | 2020-03-15 05:12 | NUR ---
NURSE NOTES: Pt awake. Attempting to remove medical devices. Continues to exhibit disruptive behavior utilizing call light more than 10 times during the hour despite all needs met. Pt asks for pain medication and snacks despite medication not due. Switched pt to Nasal Cannula saturating 100% on 3L. No cardiac or respiratory distress noted.
--- NOTE | 2020-03-15 06:19 | Diagnostic Imaging Report ---
EXAM: CT Head Without Intravenous Contrast CLINICAL HISTORY: SZ TECHNIQUE: Axial computed tomography images of the head/brain without intravenous contrast. CTDI is 53.40 mGy and DLP is 965.40 mGy-cm. One or more of the following dose reduction techniques were used: automated exposure control, adjustment of the mA and/or kV according to patient size, use of iterative reconstruction technique. COMPARISON: None FINDINGS: Brain: Unremarkable. No hemorrhage. No significant white matter disease. No edema. Ventricles: Unremarkable. No ventriculomegaly. Bones/joints: Unremarkable. No acute fracture. Soft tissues: Unremarkable. Sinuses: Unremarkable as visualized. No acute sinusitis. Mastoid air cells: Unremarkable as visualized. No mastoid effusion. IMPRESSION: No acute intracranial process.
--- NOTE | 2020-03-15 06:19 | Diagnostic Imaging Report ---
EXAM: XR Chest, 1 View CLINICAL HISTORY: AMS TECHNIQUE: Frontal view of the chest. COMPARISON: 08/06/2018. FINDINGS: Lungs: Probable subsegmental atelectasis in the mid lower lung zones bilaterally. Pleural space: Unremarkable. No pneumothorax. Heart: Cardiomegaly. Mediastinum: Unremarkable. Bones/joints: Osteopenia. Dextroscoliosis of the thoracic spine. Tubes, lines and devices: Right subclavian catheter is noted in place with its tip at the distal superior vena cava. Other findings: Hypoaeration. IMPRESSION: 1. Hypoaeration. 2. Cardiomegaly. 3. Presumed areas of subsegmental atelectasis. 4. Atypical pneumonia cannot be excluded and clinical correlation is advised. 5. Osteopenia.
--- NOTE | 2020-03-15 06:19 | Cardiology Report ---
APPROVED REPORT EXAM: Two-dimensional and M-mode echocardiogram with Doppler and color Doppler. INDICATION SOB M-Mode DIMENSIONS IVSd0.8 (0.7-1.1cm)Left Atrium (MM)4.2 (1.6-4.0cm) LVDd6.0 (3.5-5.6cm)Aortic Root3.0 (2.0-3.7cm) PWd0.9 (0.7-1.1cm)Aortic Cusp Exc.1.6 (1.5-2.0cm) IVSs1.1 cm LVDs4.1 (2.5-4.0cm) PWs1.5 cm <Conclusion> Technically difficult study due to pt verbally disrespectful. Normal left ventricular chamber size, systolic function and wall motion to extent visualized. Left ventricular ejection fraction estimated to be 60-65 %. Anterior Echo-free space, may be due to pericardial fat or effusion. All other cardiac chamber sizes are within normal limits. Calcification of aortic valve with adequate cusp excursion. Thickened mitral valve leaflets with normal excursion. Mitral annulus and aortic root calcification. Pulmonic valve not well visualized. Normal tricuspid valve structure. IVC at normal size with physiologic collapse. A color flow and spectral Doppler study was performed and revealed: Trace mitral regurgitation. Mitral inflow indicates normal left ventricular diastolic function. Mild tricuspid regurgitation. Tricuspid systolic velocities suggests peak right ventricular systolic pressure of 30mmHg.
--- NOTE | 2020-03-15 06:49 | NUR ---
NURSE NOTES: Orders to transfer to Med-Surg in AM. Will endorse. Pt in stable condition. Drowsy but alert, awake, and continues to request for medication.
--- NOTE | 2020-03-15 07:34 | NUR ---
NURSE HAND-OFF REPORT: Important Events on Shift: Transfer to [facility] in AM Patient Status: Stable - Disoriented / Confused Diet: NPO Pending Orders: Y - DIET ORDER Pending Results/Labs: N Pending MD notification: N Latest Vital Signs: Temperature 98.0 , Pulse 78 , B/P 94 /56 , Respiratory Rate 18 , O2 SAT 100 , Venturi Mask, O2 Flow Rate 15.0 . Vital Sign Comment: EKG Rhythm: Sinus Rhythm Rhythm change?: N MD Notified?: - MD Response: Latest Parks Fall Score: 50 Fall Risk: High Risk Safety Measures: Call light Within Reach, Bed Alarm Zone 2, Side Rails Side Rails x2, Bed position Low and Locked. Fall Precautions: Yellow Socks Yellow Gown Door Sign Patient Fall Education Report given to FILI Rivera.
--- NOTE | 2020-03-15 07:45 | NUR ---
NURSE NOTES:Handoff received from FILI Dill. Patient received awake and alert and able to make needs known, patient is oriented to person, time and reason for visit, but unable to identify the hospital. Patient received resting in bed, on 3 liters nasal cannula satting at 98%, seizure precautions being followed with side rails padded, patient is NPO for seizures, plan is to have a swallow/speech evaluation today and possible brain MRI. Patient is placed on fall and aspiration precautions. Bed in the lowest and locked position with call light within reach. Patient provided with a phone to call family. patient has surgical and abdominal site noted. Patient access is R upper arm permacath, no fluids running at this time. Will follow plan of care and monitor patient closely.
[2020-03-15 08:00] VITALS: BP 121/58
--- NOTE | 2020-03-15 08:36 | NUR ---
NURSE NOTES:Called and got order to cancel restraints for patient, as patient received this AM without restraints on patient. Patient does not require restraints at this time. Order received from Dr Osuna.
[2020-03-15] MEDS ORDERED: ARIPiprazole 10mg tab ORAL SCH (09:00)
[2020-03-15] MEDS ORDERED: Doxycycline Monohydrate 100mg ORAL SCH (09:00)
[2020-03-15] MEDS ORDERED: Vitamin D 1000 IU Tab ORAL SCH (09:00)
[2020-03-15] MEDS ORDERED: levETIRAcetam 1,000mg/NS100ml 100 ML IVPB SCH (09:00)
[2020-03-15] MEDS ORDERED: Docusate 250mg cap ORAL SCH (09:00)
[2020-03-15] MEDS ORDERED: Bumetanide 1mg tab ORAL SCH (09:00)
[2020-03-15] MEDS ORDERED: Eliquis 5mg tablet ORAL SCH (09:00)
[2020-03-15] MEDS ORDERED: Sennosides 8.6mg tab ORAL ONE (09:00)
[2020-03-15] MEDS ORDERED: Aspirin Baby 81mg ORAL SCH (09:00)
--- NOTE | 2020-03-15 10:00 | NUR ---
Speech Pathology Note (Bedside Dysphagia Evaluation) Indication of evaluation: S/P seizure with AMS, SLE with gastroparesis to rule out dysphagia to r/o aspiration Brief Note: Ms. Joseph is a 54 year old female who is a resident of [facility] on 03/14/2020 for seizure. Her significant past medical history includes Bren-Danlos Syndrome, SLE, gastroparesis , CHF, A-fib, multiple DVT, PE, s/p IVC filter, Bipolar, and seizure. her previous diet and [facility] is regular diet. Labs, Vital signs imaging and progress notes are all reviewed. Findings and Impression: She was alert and oriented. oral exam is unremarkable except lack of denture. She stated that she eat/chew better without denture. She said she has it. Given her thin liquid and dry solid, she tolerated well without s.s of aspiration or regurgitation. Her mental status and swallow function appeared to be at her baseline. Interpretation: 1. Functional swallow without s.s of aspiration Plan: 1. Regular diet and thin liquid I will sign off from service at this time. Nancy Rodas
[2020-03-15 10:08] LABS: BASOPHILS % (AUTO) 1.6 % (0.0-2.0); EOSINOPHILS % (AUTO) 4.3 % (0.0-3.0); HEMATOCRIT 33.6 % (37.0-47.0); LYMPHOCYTES % (AUTO) 22.8 % (20.0-45.0); MEAN CORPUSCULAR VOLUME 98 FL (80-99); MONOCYTES % (AUTO) 12.4 % (1.0-10.0); PLATELET COUNT 252 K/UL (150-450); RED BLOOD COUNT 3.42 M/UL (4.20-5.40); RED CELL DISTRIBUTION WIDTH 14.4 % (11.6-14.8); WHITE BLOOD COUNT 5.6 K/UL (4.8-10.8)
[2020-03-15 10:15] LABS: ANION GAP 7 mmol/L (5-15); BLOOD UREA NITROGEN 12 mg/dL (7-18); CALCIUM 8.6 MG/DL (8.5-10.1); CARBON DIOXIDE 29 MMOL/L (21-32); CHLORIDE 105 MMOL/L (98-107); CREATININE 0.8 MG/DL (0.55-1.30); PHOSPHORUS 4.5 MG/DL (2.5-4.9); POTASSIUM 3.4 MMOL/L (3.5-5.1); SODIUM 141 MMOL/L (136-145)
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
--- NOTE | 2020-03-15 10:52 | Pulmonology Progress Note ---
Subjective Interval Events: Seen in [place] Constitutional: Reports: no symptoms HEENT: Repors: no symptoms Respiratory: Reports: no symptoms Cardiovascular: Reports: no symptoms Gastrointestinal/Abdominal: Reports: no symptoms Genitourinary: Reports: no symptoms Allergies: Coded Allergies: ADHESIVE TAPE (Verified Allergy, Unknown, 08/06/18) ALBUTEROL (Verified Allergy, Unknown, 08/06/18) ASPARTAME (Verified Allergy, Unknown, 08/06/18) BACITRACIN (Verified Allergy, Unknown, 08/06/18) CHLORHEXIDINE (Verified Allergy, Unknown, 08/06/18) DIPHENHYDRAMINE (Verified Allergy, Unknown, 08/06/18) DROPERIDOL (Verified Allergy, Unknown, 08/06/18) ERGOTAMINE (Verified Allergy, Unknown, 08/06/18) HYDROCODONE (Verified Allergy, Unknown, 08/06/18) IPRATROPIUM (Verified Allergy, Unknown, 08/06/18) LATEX (Verified Allergy, Unknown, 08/06/18) LEVALBUTEROL (Verified Allergy, Unknown, 08/06/18) MUPIROCIN (Verified Allergy, Unknown, 08/06/18) NALOXONE (Verified Allergy, Unknown, 08/06/18) NAPHAZOLINE (Verified Allergy, Unknown, 08/06/18) NEOMYCIN (Verified Allergy, Unknown, 08/06/18) PROCHLORPERAZINE (Verified Allergy, Unknown, 08/06/18) SULFAMETHOXAZOLE (Verified Allergy, Unknown, 08/06/18) THIMEROSAL (Verified Allergy, Unknown, 08/06/18) TRAMADOL (Verified Allergy, Unknown, 08/06/18) VITAMIN K2 (Verified Allergy, Unknown, 08/06/18) Objective Last 24 Hour Vital Signs Date Time Temp Pulse Resp B/P (MAP) Pulse Ox O2 Delivery O2 Flow Rate FiO2 03/15/20 08:00 Nasal Cannula 3.0 03/15/20 08:00 68 03/15/20 08:00 97.7 59 21 121/58 (79) 100 03/15/20 06:00 98.0 03/15/20 04:00 Venturi Mask 15.0 03/15/20 04:00 98.0 78 18 94/56 (69) 100 03/15/20 03:37 64 03/15/20 02:04 73 16 94/56 100 03/15/20 01:34 82 16 112/87 98 03/15/20 00:00 98.7 72 18 106/52 (70) 100 03/15/20 00:00 Simple Mask 15.0 03/14/20 23:29 98.7 03/14/20 21:00 69 20 100/51 (67) 100 03/14/20 20:00 98.8 75 12 90/41 (57) 100 03/14/20 20:00 71 03/14/20 20:00 Simple Mask 15.0 03/14/20 19:00 84 22 95/55 (68) 100 03/14/20 18:00 77 14 105/57 (73) 100 03/14/20 17:32 92 18 96 03/14/20 17:00 69 10 97/56 (70) 99 03/14/20 16:00 75 03/14/20 16:00 98.6 74 14 121/68 (85) 100 03/14/20 16:00 Simple Mask 15.0 03/14/20 15:00 71 15 111/62 (78) 100 03/14/20 14:00 88 17 117/64 (81) 100 03/14/20 13:16 79 18 120/62 98 03/14/20 13:12 79 19 119/67 97 03/14/20 13:00 69 14 113/59 (77) 99 03/14/20 12:12 82 17 110/66 97 03/14/20 12:00 67 03/14/20 12:00 Simple Mask 15.0 03/14/20 12:00 98.9 96 111/64 (80) 03/14/20 11:50 98.2 17 110/64 (79) 96 03/14/20 11:45 85 16 99 03/14/20 11:44 98.2 17 108/62 (77) 96 03/14/20 11:43 84 18 108/62 99 03/14/20 11:42 83 20 110/66 99 03/14/20 11:38 98.1 17 119/64 (82) 98 03/14/20 11:36 93 18 119/64 98 03/14/20 11:33 98.2 18 119/67 (84) 96 03/14/20 11:27 98.1 18 120/62 (81) 97 10/11/20 11:13 82 20 116/63 94 03/14/20 11:06 86 18 114/65 98 Intake and Output 03/14/20 03/15/20 19:00 07:00 Intake Total 605 ml 200 ml Output Total 3850 ml 400 ml Balance -3245 ml -200 ml IV Total 605 ml 200 ml Output Urine Total 3850 ml 400 ml General Appearance: no acute distress HEENT: normocephalic Respiratory: chest wall non-tender, lungs clear Cardiovascular: normal peripheral pulses, normal rate Abdomen: normal bowel sounds Microbiology Date/Time Source Procedure Growth Status 03/13/20 23:28 Nasopharynx SARS-CoV-2 RdRp Gene Assay - Final Complete 03/13/20 22:35 Arm Right Blood Culture - Preliminary Gram Positive Cocci Resulted 03/13/20 22:20 Arm Left Blood Culture - Preliminary NO GROWTH AFTER 24 HOURS Resulted Laboratory Tests 03/14/20 11:15: POC Whole Blood Glucose 115H 03/14/20 11:40: White Blood Count 5.7, Red Blood Count 3.46L, Hemoglobin 11.2L, Hematocrit 34.0L , Mean Corpuscular Volume 98, Mean Corpuscular Hemoglobin 32.3H, Mean Corpuscular Hemoglobin Concent 32.8, Red Cell Distribution Width 14.2, Platelet Count 273, Mean Platelet Volume 5.9L, Neutrophils (%) (Auto) 60.3, Lymphocytes (%) (Auto) 24.9, Monocytes (%) (Auto) 11.4H, Eosinophils (%) (Auto) 1.5, Basophils (%) (Auto) 2.0, Sodium Level 139, Potassium Level 4.6, Chloride Level 104, Carbon Dioxide Level 24, Anion Gap 11, Blood Urea Nitrogen 17, Creatinine 0.7, Estimat Glomerular Filtration Rate > 60, Glucose Level 116H, Lactic Acid Level 1.20, Calcium Level 8.9, Phosphorus Level 3.2, Magnesium Level 1.3L, Total Bilirubin 0.3, Aspartate Amino Transf (AST/SGOT) 29, Alanine Aminotransferase (ALT/SGPT) 22, Alkaline Phosphatase 178H, Pro-B-Type Natriuretic Peptide 43, Total Protein 6.6, Albumin 3.0L, Globulin 3.6, Albumin/Globulin Ratio 0.8L, Thyroid Stimulating Hormone (TSH) 0.436 03/14/20 12:00: Prothrombin Time 11.0, Prothromb Time International Ratio 1.0, Activated Partial Thromboplast Time 27 03/15/20 09:35: White Blood Count 5.6, Red Blood Count 3.42L, Hemoglobin 11.0L, Hematocrit 33.6L , Mean Corpuscular Volume 98, Mean Corpuscular Hemoglobin 32.2H, Mean Corpus cular Hemoglobin Concent 32.9, Red Cell Distribution Width 14.4, Platelet Count 252, Mean Platelet Volume 5.9L, Neutrophils (%) (Auto) 59.0, Lymphocytes (%) (Auto) 22.8, Monocytes (%) (Auto) 12.4H, Eosinophils (%) (Auto) 4.3H, Basophils (%) (Auto) 1.6, Sodium Level 141, Potassium Level 3.4L, Chloride Level 105, Carbon Dioxide Level 29, Anion Gap 7, Blood Urea Nitrogen 12, Creatinine 0.8, Estimat Glomerular Filtration Rate > 60, Glucose Level 95, Calcium Level 8.6, Phosphorus Level 4.5, Magnesium Level 2.2 Current Medications Medications (Trade) Dose Ordered Sig/Zohra Route PRN Reason Start Time Stop Time Status Last Admin Dose Admin Acetaminophen (Tylenol) 1,000 mg Q6H PRN ORAL For Pain 03/14/20 21:45 04/13/20 21:44 Acetaminophen/ Hydrocodone Bitart (Olmitz 7.5/325) 1 tab Q4H PRN ORAL Pain Scale (6-10) 03/14/20 21:45 03/21/20 21:44 Albuterol/ Ipratropium (Albuterol/ Ipratropium) 3 ml Q4HRT PRN HHN Shortness of breath 03/14/20 21:45 03/19/20 21:44 Apixaban (Eliquis) 5 mg BID ORAL 03/15/20 09:00 06/13/20 08:59 03/15/20 08:57 Aripiprazole (Abilify) 30 mg DAILY ORAL 03/15/20 09:00 04/29/20 08:59 03/15/20 08:55 Aspirin (ASA) 81 mg DAILY ORAL 03/15/20 09:00 04/29/20 08:59 03/15/20 08:55 Atorvastatin Calcium (Lipitor) 10 mg BEDTIME ORAL 03/15/20 21:00 06/13/20 20:59 Barium Sulfate (Varibar Honey) 250 ml NOW PRN RAD 03/15/20 04:00 Barium Sulfate (Varibar [place]) 240 ml NOW PRN RAD 03/15/20 04:00 Barium Sulfate (Varibar Pudding) 230 ml NOW PRN RAD 03/15/20 04:00 Barium Sulfate (Varibar Thin Liquid powder) 148 gm NOW PRN RAD 03/15/20 04:00 Bumetanide (Bumex) 3 mg DAILY ORAL 03/15/20 09:00 04/14/20 08:59 03/15/20 08:54 Doxycycline Monohydrate (Doxycycline Monohydrate) 100 mg EVERY 12 HOURS ORAL 03/15/20 09:00 03/22/20 08:59 03/15/20 08:54 Gabapentin (Neurontin) 1,200 mg THREE TIMES A DAY ORAL 03/15/20 09:00 04/14/20 08:59 03/15/20 08:54 Hydromorphone HCl (Dilaudid) 2 mg Q6H PRN IVP Severe Pain (Pain Scale 7-10) 03/14/20 21:45 03/21/20 21:44 03/15/20 05:30 Lidocaine (Lidoderm 5% PATCH) 1 patch DAILY TDERMAL 03/15/20 09:00 06/13/20 08:59 03/15/20 09:05 Lorazepam (Ativan 2mg/ml 1ml) 2 mg Q6H PRN IV For Anxiety 03/14/20 22:30 03/21/20 21:44 03/15/20 01:34 Ondansetron HCl (Zofran) 8 mg Q6H PRN IVP Nausea & Vomiting 03/14/20 21:45 04/13/20 21:44 Pantoprazole (Protonix) 40 mg EVERY 12 HOURS ORAL 03/15/20 09:00 04/14/20 08:59 03/15/20 08:55 Polyethylene Glycol (Miralax) 17 gm BID PRN ORAL Constipation 03/14/20 21:45 04/13/20 21:44 Potassium Chloride (K-Dur) 40 meq ONCE ORAL 03/15/20 10:30 03/15/20 11:30 Simethicone (Mylicon) 160 mg Q8HR PRN ORAL Abdominal cramps 03/14/20 21:45 06/12/20 21:44 Vitamin D (Vitamin D) 2,000 intlu DAILY ORAL 03/15/20 09:00 04/14/20 08:59 03/15/20 09:05 Assessment/Plan Assessment/Plan IMPRESSION: 1. Status epilepticus status post Keppra dosing vs pseudo-seizures? 2. Multiple medical problems consisting of Bren-Danlos syndrome, antiphospholipid syndrome, chronic atrial fibrillation, lupus, gastroparesis, previous PE and atrial fibrillation. DISCUSSION: Currently saturating well on room air. I will follow carefully. Diamond [facility] Omar Syed MD Mar 15, 2020 10:52
[2020-03-15 12:00] VITALS: BP 142/71
--- NOTE | 2020-03-15 12:10 | NUR ---
NURSE NOTES:Patient screaming that her brain hurts. Asked patient what was distressing her and she stated " I cannot control my mind" patient also stated that she takes a medication Vraylar for bipolar disorder. contacted primary MD regarding medication.
--- NOTE | 2020-03-15 12:33 | NUR ---
NURSE NOTES:Patient took off Nasal cannula, 02 saturation remains at 98 on room air.
--- NOTE | 2020-03-15 13:22 | NUR ---
NURSE NOTES:Contacted Dr Osuna as patient stated she takes Vraylar but is not receiving this medication inpatient. Dr stated that he has contacted Dr Huggins for a psychiatric consultation.
--- NOTE | 2020-03-15 14:20 | NUR ---
NURSE NOTES:Dr Huggins rounded on patient. Gave order for 2mg PO Risperidone BID.
--- NOTE | 2020-03-15 14:46 | NUR ---
*-*DISCHARGE PLANNING*-* PATIENT HAS BEEN ACCEPTED BACK TO: [facility] P: [phone] ROOM# 13.B SKILLED
--- NOTE | 2020-03-15 15:47 | NUR ---
NURSE NOTES:Patient is stating she wants to leave AMA after having her son pick her up. Patient stating " I want to go to [facility] to have my leg and psych taken care of" Spoke to patient and tried to convince her to stay as leaving is against medical advice. Patient stating she wants to finish her sandwich and then will leave. Patient assessed again and is alert to person, time place and purpose. Dr Santos also assessed patient earlier and patient was found to be alert and oriented x4.
[2020-03-15 16:00] VITALS: BP 104/83
--- NOTE | 2020-03-15 16:04 | NUR ---
NURSE NOTES: Dr Osuna, the covering MD for [facility] returned my call. Informed him that patient is demanding to leave against medical advice so that her son can take her to [facility]. MD aware of patient intention to leave AMA. Tried again to convince patient to stay until medically cleared but patient insisting on leaving AMA. Patient currently for her son to pick her up.
--- NOTE | 2020-03-15 16:37 | NUR ---
CASE MANAGEMENT: REVIEW SI: SEIZURE . STATUS EPILEPTICUS T 97.0 HR 59 RR 21 BP 142/58 SAT 98% NC/3L H/H 11.0/33.6 K 3.4 IS: NS IVF @ 100ML/HR K-DUR 40MEQ PO X1 GABAPENTIN PO TID DOXYCYCLINE PO Q12HR BUMEX PO QD METOLAZONE PO X1 ST EVAL STEP DOWN UNIT STATUS DCP: PATIENT IS FROM [facility]
--- NOTE | 2020-03-15 17:05 | NUR ---
NURSE NOTES:Patient offered clean clothes as she only had the hospital gown that she wore on arrival. Patient refused clothing stating that she just wanted another hospital gown. Patient given a second gown to cover the opening where the first gown opens at the back.
--- NOTE | 2020-03-15 17:23 | NUR ---
NURSE NOTES:Patient's son Ronen arrived to pick patient up. Son stated that he will be taking his mother to [facility]. Christian removed, DANIELA paperwork signed, along with belongings list, patient missing one rubber bracelet, documented missing item on belongings list and gave copy to the patient. Charge Nurse Audrey removed patient kayli-cath before discharge. Patient taken down in wheelchair where she left in her son's car.
--- NOTE | 2020-03-15 19:30 | Electroencephalogram ---
DATE OF PROCEDURE: 03/14/2020 REQUESTING PHYSICIAN: Sander Osuna D.O. READING PHYSICIAN: Washington Crouch M.D. HISTORY: This EEG was performed on a 54-year-old lady with a history of possible seizures. The purpose of this EEG was to evaluate the patient for the degree and type of cerebral dysfunction and to exclude ongoing ictal or interictal phenomena. TECHNICAL NOTE: This EEG was performed on a [employer] Digital Ac[employer] Unit with electrodes placed on the scalp according to the International 10-20 system. [id number] and [id number] montages were used. The EEG was of technically mediocre quality due to the fact that no attempts were made to wake the patient up throughout the tracing. The EEG was only done in the sleep state with some intermixed drowsiness. OBSERVATIONS: During most of the tracing, the patient was asleep with the background in the delta and theta range with the presence of vertex waves and 14 Hz sleep spindles. Periods of drowsiness were characterized by a background in the 5-6 Hz theta range. No focal abnormalities or epileptiform discharges were seen. IMPRESSION: Normal drowsy and sleep EEG. COMMENT: This EEG was only performed in the drowsy and sleep states; and thus, it is impossible to know if the patient does have an underlying encephalopathy. However, please note that no interictal or ictal discharges were seen. Clinical correlation is recommended. Washington Crouch M.D. M.S.P.H. Clinical Neurophysiologist DR: TYLER JOB#: [id number] [place]
[2020-03-15] MEDS ORDERED: Sodium Chloride for KCL Premix x 2hrs IV SCH (22:30)
--- NOTE | 2020-03-15 23:57 | Psych Consult Progress Note ---
Psychiatry Progress Note Psychiatry Progress Note Neurological/Psychiatric: Denies: no symptoms, anxiety, depressed, emotional problems, headache, numbness, paresthesia, pre-existing deficit, seizure, tingling, tremors, weakness, other Allergies: Coded Allergies: ADHESIVE TAPE (Verified Allergy, Unknown, 08/06/18) ALBUTEROL (Verified Allergy, Unknown, 08/06/18) ASPARTAME (Verified Allergy, Unknown, 08/06/18) BACITRACIN (Verified Allergy, Unknown, 08/06/18) CHLORHEXIDINE (Verified Allergy, Unknown, 08/06/18) DIPHENHYDRAMINE (Verified Allergy, Unknown, 08/06/18) DROPERIDOL (Verified Allergy, Unknown, 08/06/18) ERGOTAMINE (Verified Allergy, Unknown, 08/06/18) HYDROCODONE (Verified Allergy, Unknown, 08/06/18) IPRATROPIUM (Verified Allergy, Unknown, 08/06/18) LATEX (Verified Allergy, Unknown, 08/06/18) LEVALBUTEROL (Verified Allergy, Unknown, 08/06/18) MUPIROCIN (Verified Allergy, Unknown, 08/06/18) NALOXONE (Verified Allergy, Unknown, 08/06/18) NAPHAZOLINE (Verified Allergy, Unknown, 08/06/18) NEOMYCIN (Verified Allergy, Unknown, 08/06/18) PROCHLORPERAZINE (Verified Allergy, Unknown, 08/06/18) SULFAMETHOXAZOLE (Verified Allergy, Unknown, 08/06/18) THIMEROSAL (Verified Allergy, Unknown, 08/06/18) TRAMADOL (Verified Allergy, Unknown, 08/06/18) VITAMIN K2 (Verified Allergy, Unknown, 08/06/18) Objective Data Height (Feet): 5 Height (Inches): 10.00 Weight (Pounds): 220 General Appearance: no apparent distress, lethargic, alert oriented x3 Kerri Morse MD Mar 15, 2020 23:57
--- NOTE | 2020-03-16 03:30 | Consultation ---
DATE OF CONSULTATION: 03/15/2020 HISTORY OF PRESENT ILLNESS: This is a 54-year-old female who is well known to me from previous admission. The patient was admitted with a chief complaint of seizure. She has been during the evaluation agitated, screaming, poor insight. The patient's EEG came back normal. It appears that the patient symptoms. During evaluation, she was agitated, attention-seeking behavior. The patient stated that she would like to go to [facility]. The patient is able to understand, process, communicate rationally. PAST MEDICAL HISTORY: Significant for pseudoseizure and hypertension. ALLERGIES: Albuterol, diphenhydramine, and hydrocodone. SUBSTANCE ABUSE HISTORY: She is denying any illicit drug use or alcohol. Her toxicology is negative for drugs. MENTAL STATUS EXAMINATION: The patient is alert, oriented times self, place, and situation. Mood is agitated. Affect is . Thought process is concrete. Thought content, no suicidal or homicidal ideation. Cognition is intact. Insight and judgment are fair. ASSESSMENT: [place] I Anxiety disorder. [place] II Deferred. [place] III Pseudoseizure. [place] IV . [place] V . PLAN: 1. Start the patient on Ativan. 2. Low dose of antipsychotic. 3. The patient has capacity to make decision. Kerri Morse M.D. DR: MANDY JOB#: [id number] CC:
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
== END 2020-03-15 17:20 | disposition left against medical advice (07) | DRG 101 ==
LOC: EDBD 21:36 → EMR 21:49 → 2E 22:30 → EDBEDREQ 03-14 00:40 → ICU 03-14 09:29 → 2E 03-14 09:30 → ICU 03-14 11:45 → UNDODISIN 03-14 16:30 → 2W 03-14 21:57
DX: G40.89 Other seizures (principal); I48.20 Chronic atrial fibrillation, unspecified; Q79.60 Ehlers-Danlos syndrome, unspecified; I42.8 Other cardiomyopathies; I50.30 Unspecified diastolic (congestive) heart failure; D68.61 Antiphospholipid syndrome; M86.669 Other chronic osteomyelitis, unspecified tibia and fibula; F44.5 Conversion disorder with seizures or convulsions; E87.6 Hypokalemia; F31.9 Bipolar disorder, unspecified; M32.9 Systemic lupus erythematosus, unspecified; G40.909 Epilepsy, unspecified, not intractable, without status epilepticus; I11.0 Hypertensive heart disease with heart failure; K31.84 Gastroparesis; Z88.2 Allergy status to sulfonamides; Z88.8 Allergy status to other drugs, medicaments and biological substances; Z88.1 Allergy status to other antibiotic agents; Z91.040 Latex allergy status; Z79.01 Long term (current) use of anticoagulants; Z79.82 Long term (current) use of aspirin; M19.90 Unspecified osteoarthritis, unspecified site; D53.9 Nutritional anemia, unspecified; J45.909 Unspecified asthma, uncomplicated; Z86.711 Personal history of pulmonary embolism; Z86.718 Personal history of other venous thrombosis and embolism; F41.9 Anxiety disorder, unspecified
CPT/HCPCS: 36415; 70450; 71045; 80048; 80053; 80307; 81003; 82550; 82962; 83605; 83735; 83880; 84100; 84443; 84484; 85025; 85610; 85730; 87040; 87081; 87181; 93306; 95819; 99291; J1165; J2405; J8499; U0002

== ENCOUNTER → 2020-03-19 | Emergency (ER) | payer MEDICARE, OTHER ==
[~2020-03-19] VITALS: Ht 165.1 cm; Wt 72.6 kg
[~2020-03-19] MED LIST: ABILIFY30 MG ORAL; ACETAMINOPHEN500 M3 ORAL; ASPIRIN81 MG ORAL; ATORVASTATIN CA10 MG ORAL; BENTYL10 MG/1 ML IM; BUMETANIDE2 MG ORAL; CELLCEPT500 MG ORAL; CEPHALEXIN500 M1 ORAL; CYCLOBENZAPRINE10 MG ORAL; DOCUSATE SODIU250 MG ORAL; DOXYCYCLINE MO100 MG ORAL; ELIQUIS5 MG ORAL; GABAPENTIN600 MG ORAL; HYDROMORPHO1 MG/1 M2 PO; HYDROXYZINE HCL50 M1 PO; Heplock Flush 100 units/ml 3 ml syr INJ STA; ISOPTO TEARS15 ML OP; K-TAB10 MEQ PO; KLONOPIN2 MG PO; LIDODERM700 M1 TOPIC; LIPITOR10 MG ORAL; MAGNESIUM400 M1 PO; MELATONIN3 MG ORAL; METOLAZONE5 MG PO; MIRALAX17 G2 ORAL; PANTOPRAZOLE SO40 MG ORAL; SENNA8.6 M2 PO; SIMETHICONE80 MG ORAL; SPIRIVA18 MCG INH; VITAMIN B122500 MCG PO; VITAMIN D325 MC1 PO; vraylar PO
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
[2020-03-19 14:32] LABS: APPEARANCE,URINE CLEAR; BILIRUBIN, URINE NEGATIVE (NEGATIVE); COLOR,URINE PALE YELLOW; GLUCOSE, URINE (UA) NEGATIVE (NEGATIVE); KETONES,URINE NEGATIVE (NEGATIVE); LEUKOCYTE ESTERASE ,URINE 1+ (NEGATIVE); NITRITE,URINE NEGATIVE (NEGATIVE); PH,URINE 7 (4.5-8.0); PROTEIN,URINE NEGATIVE (NEGATIVE); UROBILINOGEN,URINE NORMAL MG/DL (0.0-1.0)
[2020-03-19 14:36] LABS: BASOPHILS % (AUTO) 1.4 % (0.0-2.0); EOSINOPHILS % (AUTO) 2.2 % (0.0-3.0); HEMOGLOBIN 11.6 G/DL (12.0-16.0); LYMPHOCYTES % (AUTO) 25.8 % (20.0-45.0); MEAN CORPUSCULAR VOLUME 97 FL (80-99); NEUTROPHILS % (AUTO) 59.5 % (45.0-75.0); PLATELET COUNT 304 K/UL (150-450); RED BLOOD COUNT 3.63 M/UL (4.20-5.40); RED CELL DISTRIBUTION WIDTH 13.6 % (11.6-14.8); WHITE BLOOD COUNT 5.2 K/UL (4.8-10.8)
[2020-03-19 14:45] VITALS: BP 148/92
--- NOTE | 2020-03-19 14:50 | NUR ---
ED Nurse Note: pt seems to be more alert and awake, demanding for blankets, repeatedly calling for nurses to bring pt her belongings that are hanging next to her bed
[2020-03-19 15:03] LABS: ALANINE AMINOTRANSFERASE 18 U/L (12-78); ALBUMIN 2.9 G/DL (3.4-5.0); ALBUMIN/GLOBULIN RATIO 0.9 (1.0-2.7); ALKALINE PHOSPHATASE 171 U/L (46-116); ANION GAP 10 mmol/L (5-15); ASPARTATE AMINO TRANSFERASE 20 U/L (15-37); BILIRUBIN,TOTAL 0.2 MG/DL (0.2-1.0); BLOOD UREA NITROGEN 13 mg/dL (7-18); CALCIUM 8.7 MG/DL (8.5-10.1); CARBON DIOXIDE 26 MMOL/L (21-32); CHLORIDE 102 MMOL/L (98-107); CREATININE 0.7 MG/DL (0.55-1.30); POTASSIUM 3.7 MMOL/L (3.5-5.1); SODIUM 138 MMOL/L (136-145)
--- NOTE | 2020-03-19 15:08 | Emergency Room Report ---
History of Present Illness General Chief Complaint: Altered Mental Status Source: Patient (Nimesh Rosenberg MD) Present Illness HPI Mrs. Joseph is a 54F with PMH of epilepsy, bipolar type 1, HFpEF, Afib on eliquis, Bren danlos syndrome, anti-phospholipid syndrome, SLE, gastroparesis, PE x4 and multiple DVT's, Familial hemiplegic migraines, OA and asthma who presents from SNF following aggressive behavior throwing temper tantrums and refusing to talk to staff, unknown aggravating or alleviating factors severity is moderate, constant. Patient currently in no acute distress answering questions appropriately. (Nimesh Rosenberg MD) Allergies: Coded Allergies: ADHESIVE TAPE (Verified Allergy, Unknown, 08/06/18) ALBUTEROL (Verified Allergy, Unknown, 08/06/18) ASPARTAME (Verified Allergy, Unknown, 08/06/18) BACITRACIN (Verified Allergy, Unknown, 08/06/18) CHLORHEXIDINE (Verified Allergy, Unknown, 08/06/18) DIPHENHYDRAMINE (Verified Allergy, Unknown, 08/06/18) DROPERIDOL (Verified Allergy, Unknown, 08/06/18) ERGOTAMINE (Verified Allergy, Unknown, 08/06/18) HYDROCODONE (Verified Allergy, Unknown, 08/06/18) IPRATROPIUM (Verified Allergy, Unknown, 08/06/18) LATEX (Verified Allergy, Unknown, 08/06/18) LEVALBUTEROL (Verified Allergy, Unknown, 08/06/18) MUPIROCIN (Verified Allergy, Unknown, 08/06/18) NALOXONE (Verified Allergy, Unknown, 08/06/18) NAPHAZOLINE (Verified Allergy, Unknown, 08/06/18) NEOMYCIN (Verified Allergy, Unknown, 08/06/18) PROCHLORPERAZINE (Verified Allergy, Unknown, 08/06/18) SULFAMETHOXAZOLE (Verified Allergy, Unknown, 08/06/18) THIMEROSAL (Verified Allergy, Unknown, 08/06/18) TRAMADOL (Verified Allergy, Unknown, 08/06/18) VITAMIN K2 (Verified Allergy, Unknown, 08/06/18) COVID-19 Screening Contact w/high risk pt: No Experienced COVID-19 symptoms?: No COVID-19 Testing performed [employer]IATION [employer]INTE[employer]CE INSTRUCTOR: No (Nimesh Rosenberg MD) Patient History Past Medical History: see triage record Last Menstrual Period: na Reviewed Nursing Documentation: PMH: Agreed; PSxH: Agreed (Nimesh Rosenberg MD) Nursing Documentation-PMH Past Medical History: No History, Except For Hx Hypertension: Yes Hx Cancer: No History Of Psychiatric Problem: Yes (Nimesh Rosenberg MD) Review of Systems All Other Systems: negative except mentioned in HPI (Nimesh Rosenberg MD) Physical Exam Vital Signs Date Time Temp Pulse Resp B/P (MAP) Pulse Ox O2 Delivery O2 Flow Rate FiO2 03/19/20 13:34 98.8 99 18 148/92 (110) 98 Room Air Sp02 EP Interpretation: reviewed, normal General Appearance: well appearing, no apparent distress, alert Head: normocephalic, atraumatic Eyes: bilateral eye PERRL, bilateral eye EOMI ENT: uvula midline, moist mucus membranes Neck: supple, thyroid normal, supple/symm/no masses Respiratory: lungs clear, no respiratory distress, no retraction, no accessory muscle use Cardiovascular #1: normal peripheral pulses, regular rate, rhythm, no edema, no gallop, no murmur Gastrointestinal: non tender, soft, no guarding, no rebound Musculoskeletal: normal inspection Neurologic: alert, responsive Psychiatric: mood/affect normal Skin: no rash, warm/dry (Nimesh Rosenberg MD) Medical Decision Making Diagnostic Impression: Primary Impression: Altered mental status Qualified Codes: R41.82 - Altered mental status, unspecified Additional Impression: UTI (urinary tract infection) Qualified Codes: N30.00 - Acute cystitis without hematuria ER Course 54-year-old female presents with transient altered mental status that that has since resolved Patient found to have some bacteria in the urine, which may be triggering her to act erratically We will provide patient with prescription for Keflex Disposition back to [facility] Laboratory Tests Test 03/19/20 13:50 03/19/20 14:00 White Blood Count 5.2 K/UL (4.8-10.8) Red Blood Count 3.63 M/UL (4.20-5.40) L Hemoglobin 11.6 G/DL (12.0-16.0) L Hematocrit 35.0 % (37.0-47.0) L Mean Corpuscular Volume 97 FL (80-99) Mean Corpuscular Hemoglobin 31.8 PG (27.0-31.0) H Mean Corpuscular Hemoglobin Concent 33.0 G/DL (32.0-36.0) Red Cell Distribution Width 13.6 % (11.6-14.8) Platelet Count 304 K/UL (150-450) Mean Platelet Volume 5.3 FL (6.5-10.1) L Neutrophils (%) (Auto) 59.5 % (45.0-75.0) Lymphocytes (%) (Auto) 25.8 % (20.0-45.0) Monocytes (%) (Auto) 11.0 % (1.0-10.0) H Eosinophils (%) (Auto) 2.2 % (0.0-3.0) Basophils (%) (Auto) 1.4 % (0.0-2.0) Sodium Level 138 MMOL/L (136-145) Potassium Level 3.7 MMOL/L (3.5-5.1) Chloride Level 102 MMOL/L (98-107) Carbon Dioxide Level 26 MMOL/L (21-32) Anion Gap 10 mmol/L (5-15) Blood Urea Nitrogen 13 mg/dL (7-18) Creatinine 0.7 MG/DL (0.55-1.30) Estimated Glomerular Filtration Rate > 60 mL/min (>60) Glucose Level 111 MG/DL (74-106) H Calcium Level 8.7 MG/DL (8.5-10.1) Total Bilirubin 0.2 MG/DL (0.2-1.0) Aspartate Amino Transferase (AST) 20 U/L (15-37) Alanine Aminotransferase (ALT) 18 U/L (12-78) Alkaline Phosphatase 171 U/L (46-116) H Troponin I 0.000 ng/mL (0.000-0.056) Total Protein 6.3 G/DL (6.4-8.2) L Albumin 2.9 G/DL (3.4-5.0) L Globulin 3.4 g/dL Albumin/Globulin Ratio 0.9 (1.0-2.7) L Salicylates Level 1.2 ug/mL (2.8-20) L Acetaminophen Level < 2 MCG/ML (10-30) L Serum Alcohol < 3 mg/dL Urine Color Pale yellow Urine Appearance Clear Urine pH 7 (4.5-8.0) Urine Specific [place] 1.005 (1.005-1.035) Urine Protein Negative (NEGATIVE) Urine Glucose (UA) Negative (NEGATIVE) Urine Ketones Negative (NEGATIVE) Urine Blood Negative (NEGATIVE) Urine Nitrite Negative (NEGATIVE) Urine Bilirubin Negative (NEGATIVE) Urine Urobilinogen Normal MG/DL (0.0-1.0) Urine Leukocyte Esterase 1+ (NEGATIVE) H Urine RBC 0 /HPF (0 - 2) Urine WBC 0-2 /HPF (0 - 2) Urine Squamous Epithelial Cells Occasional /LPF Urine Bacteria Occasional /HPF (NONE) Urine Opiates Screen Negative (NEGATIVE) Urine Barbiturates Screen Negative (NEGATIVE) Phencyclidine (PCP) Screen Negative (NEGATIVE) Urine Amphetamines Screen Negative (NEGATIVE) Urine Benzodiazepines Screen Negative (NEGATIVE) Urine Cocaine Screen Negative (NEGATIVE) Urine Marijuana (THC) Screen Negative (NEGATIVE) (Nimesh Rosenberg MD) ER Course Please see above note. Patient improved with observation. Patient stable for discharge to care home facility. (Larry De La Rosa MD) EKG Diagnostic Results Troponin ordered: Yes When was troponin ordered?: Mar 19, 2020 EKG Time: 15:14 EP Interpretation: NSR, 85, QTc 445, no acute ST lesions, normal axis (Nimesh Rosenberg MD) Rate: normal Rhythm: NSR ST Segments: no acute changes (Larry De La Rosa MD) Rhythm Strip Diag. Results Rhythm Strip Time: 15:20 EP Interpretation: yes Rate: 88 Rhythm: NSR, no PVC's, no ectopy (Nimesh Rosenberg MD) EP Interpretation: yes Rhythm: NSR, no PVC's, no ectopy (Larry De La Rosa MD) Last Vital Signs Date Time Temp Pulse Resp B/P (MAP) Pulse Ox O2 Delivery O2 Flow Rate FiO2 03/19/20 13:34 98.8 99 18 148/92 (110) 98 Room Air (Nimesh Rosenberg MD) Last Vital Signs Date Time Temp Pulse Resp B/P (MAP) Pulse Ox O2 Delivery O2 Flow Rate FiO2 03/19/20 14:45 98.7 87 18 148/92 98 Room Air Status: improved (Larry De La Rosa MD) Disposition: SNF Condition: Stable Referrals: [facility] Patient Instructions: Urinary Tract Infection, [id number] Additional Instructions: The patient was provided with discharge instructions, notified to follow-up with a primary care doctor and or specialist in the next 24-48 hours, and to return to the ED if they have worsening of their symptoms. Please note that this report is being documented using DRAGON technology. This can lead to erroneous entry secondary to incorrect interpretation by the dictating instrument. Nimesh Rosenberg MD Mar 19, 2020 15:08 Larry De La Rosa MD Mar 19, 2020 15:59
--- NOTE | 2020-03-19 17:11 | NUR ---
ED Nurse Note: awaiting for transportation. pt aware and denied discomfort.
--- NOTE | 2020-03-19 17:34 | NUR ---
ED Nurse Note: REPORT GIVEN TO FILI CASTRO
--- NOTE | 2020-03-20 19:59 | Cardiology Report ---
APPROVED REPORT EKG Measurement Heart [id number] <Conclusion> Normal sinus rhythm with sinus arrhythmia Incomplete RBBB Nonspecific T wave abnormality Abnormal ECG
== END | disposition home or self-care (01) ==
LOC: EDUNIT# 13:32 → EDBD 13:33 → EMR 14:01
DX: R41.82 Altered mental status, unspecified (principal); N30.00 Acute cystitis without hematuria; G40.909 Epilepsy, unspecified, not intractable, without status epilepticus; Z79.01 Long term (current) use of anticoagulants; Z88.8 Allergy status to other drugs, medicaments and biological substances; Z91.040 Latex allergy status; Z86.711 Personal history of pulmonary embolism; Z86.718 Personal history of other venous thrombosis and embolism; Z88.2 Allergy status to sulfonamides; I10 Essential (primary) hypertension; F31.9 Bipolar disorder, unspecified
CPT/HCPCS: 36415; 80053; 80307; 81003; 84484; 85025; 93005; 96372; 99284; G0480; J1642; U0002